=== PATIENT | male | born 1960 | race Caucasian/White ===

== ENCOUNTER → 2016-07-01 | Outpatient (CLI) | payer BC ==
--- NOTE | 2016-07-01 14:29 | CR ---
EXAMINATION: Two-view chest (PA and Lateral views). HISTORY: COPD. FINDINGS: The trachea is midline. The cardiomediastinal silhouette is within normal limits. No pulmonary infil trates, effusions or pneumothorax. There is a chronic interstitial prominence. Old rib fractures are noted. IMPRESSION: No acute cardiopulmonary process.
== END ==
LOC: MW.CHFP 13:25
PROVIDERS: ATTEND Physician Assistant
DX: J44.9 Chronic obstructive pulmonary disease, unspecified (principal); I48.91 Unspecified atrial fibrillation
CPT/HCPCS: 36415; 71020; 71020-26; 85025; 85610

== ENCOUNTER → 2016-07-03 | Outpatient (CLI) | payer BC ==
--- NOTE | 2016-07-12 20:29 | ECHO ---
The echocardiogram report can be seen in this patient's EMR in the Reports section. JORDAN
== END ==
LOC: MW.US 13:00
PROVIDERS: ATTEND Internal Medicine
DX: I50.20 Unspecified systolic (congestive) heart failure (principal)
CPT/HCPCS: 93306

== ENCOUNTER 2017-09-14 14:10 | Emergency (ER) | payer BC, OTHER ==
--- NOTE | 2017-09-14 14:37 | EDM.PDOC ---
ED HPI GENERAL MEDICAL PROBLEM - General Chief Complaint: Eye Problems Stated Complaint: something in his right eye Time Seen by Provider: 09/14/17 14:20 Source of Information: Reports: Patient History Limitations: Reports: No Limitations - History of Present Illness INITIAL COMMENTS - FREE TEXT/NARRATIVE: History of present illness: []2 days ago patient was grinding metal but was wearing contacts and did not feel anything in his eyes of the time but has developed increasing pain and watery drainage in his right eye. His neighbor gave him Cipro ophthalmic drops and he has been using them. Review of systems: As per history of present illness and below otherwise all systems reviewed and negative. Past medical history: As per history of present illness and as reviewed below otherwise noncontributory. Surgical history: As per history of present illness and as reviewed below otherwise noncontributory. Social history: No reported history of drug or alcohol abuse. Family history: As per history of present illness and as reviewed below otherwise noncontributory. Physical exam: General: Well developed, well nourished in NAD HEENT: Atraumatic, normocephalic, pupils reactive, erythematous conjunctiva of the right eye no purulent drainage or obvious foreign body noted, mucous membranes moist, throat clear, neck supple, nontender, trachea midline. Lungs: Clear to auscultation, breath sounds equal bilaterally, chest nontender. Heart: S1S2, regular, negative for clicks, rubs, or JVD. Abdomen: Soft, nondistended, nontender. Negative for masses or hepatosplenomegaly. Negative for costovertebral tenderness. Pelvis: Stable nontender. Genitourinary: Deferred. Rectal: Deferred. Extremities: Atraumatic, negative for cords or calf pain. Neurovascular unremarkable. Neuro: Awake, alert, oriented. Cranial nerves II through XII unremarkable. Cerebellum unremarkable. Motor and sensory unremarkable throughout. Exam nonfocal. Diagnostics: []Proparacaine drops used and fluorescein dye placed in the eye and evaluated with daily light there is a punctate lesion in the right center of his right eye that picks up the dye Therapeutics: []Erythromycin ophthalmic ointment 3 times a day Impression: []Small corneal abrasion right eye Plan: []Follow-up ophthalmology in one to 2 days turn of symptoms worsen or change Definitive disposition and diagnosis as appropriate pending reevaluation and review of above. Right Eye Pain Score (Numeric/FACES): 7 - Related Data Allergies Allergy/AdvReac Type Severity Reaction Status Date / Time No Known Allergies Allergy Verified 09/14/17 14:36 Home Meds: Home Meds PARoxetine HCl [Paxil] 20 mg PO DAILY 01/26/15 [History] Acetaminophen/oxyCODONE [Percocet 325-10 MG] 1 - 2 tab PO Q4H PRN #80 tablet [Rx] Albuterol [IJD: Ventolin HFA] 1 - 2 puff INH Q4HR PRN #1 inhaler 11/17/15 [Rx] Aspirin 325 mg PO DAILY #30 tablet 11/17/15 [Rx] Diltiazem HCl [Diltiazem ER] 240 mg PO DAILY #30 cap.er.deg 11/17/15 [Rx] Fluticasone/Salmeterol [Advair Diskus 250-50] 1 puff INH BID #1 inhaler [Rx] Prednisone [IJD: Prednisone] 10 - 40 mg PO DAILY #30 tab 11/17/15 [Rx] Erythromycin Base [Erythromycin 0.5% Ophth Oint] 1 applic OP Q4H #1 tube [Rx] Past Medical History Cardiovascular History: Reports: Afib Respiratory History: Reports: SOB, Other (See Below) Other Respiratory History: Reports several years of tobacco use, current 1 1/2 ppd Gastrointestinal History: Reports: Other (See Below) Other Gastrointestinal History: Heartburn Musculoskeletal History: Reports: Other (See Below) Other Musculoskeletal History: hx: fracturing fingers, arm, leg Psychiatric History: Reports: Anxiety Endocrine/Metabolic History: Reports: Obesity/BMI 30+ - Infectious Disease History Infectious Disease History: Reports: Chicken Pox - Past Surgical History Musculoskeletal Surgical History: Reports: Other (See Below) Social & Family History - Family History Family Medical History: Noncontributory ED ROS GENERAL - Review of Systems Review Of Systems: See Below (See history of present illness) ED EXAM GENERAL W FULL EYE - Physical Exam Exam: See Below (See history of present illness) Course - Vital Signs Last Recorded V/S: Last Vital Signs Temp 97.2 F 09/14/17 14:34 Pulse 73 09/14/17 14:34 Resp 18 05/13/18 14:34 BP 161/98 H 09/14/17 14:34 Pulse Ox 93 L 09/14/17 14:34 - Orders/Labs/Meds Meds: Medications Discontinued Medications Generic Name Dose Route Start Last Admin Trade Name Beverly PRN Reason Stop Dose Admin Proparacaine HCl 1 ml 09/14/17 14:38 Proparacaine 0.5% Ophth Soln EYEBOTH 09/14/17 14:39 NOW STA Departure - Departure Time of Disposition: 14:52 Disposition: Home, Self-Care 01 Condition: Good Clinical Impression: Right corneal abrasion Qualifiers: Encounter type: initial encounter Qualified Code(s): S05.01XA - Injury of conjunctiva and corneal abrasion without foreign body, right eye, initial encounter - Discharge Information Prescriptions: Erythromycin Base [Erythromycin 0.5% Ophth Oint] 1 applic OP Q4H #1 tube Referrals: Mendoza Canchola MD [Primary Care Provider] - Forms: ED Department Discharge Additional Instructions: The following information is given to patients seen in the emergency department who are being discharged to home. This information is to outline your options for follow-up care. We provide all patients seen in our emergency department with a follow-up referral. The need for follow-up, as well as the timing and circumstances, are variable depending upon the specifics of your emergency department visit. If you don't have a primary care physician on staff, we will provide you with a referral. We always advise you to contact your personal physician following an emergency department visit to inform them of the circumstance of the visit and for follow-up with them and/or the need for any referrals to a consulting specialist. The emergency department will also refer you to a specialist when appropriate. This referral assures that you have the opportunity for follow-up care with a specialist. All of these measure are taken in an effort to provide you with optimal care, which includes your follow-up. Under all circumstances we always encourage you to contact your private physician who remains a resource for coordinating your care. When calling for follow-up care, please make the office aware that this follow-up is from your recent emergency room visit. If for any reason you are refused follow-up, please contact the [facility] Emergency Department at and asked to speak to the emergency department charge nurse. Erythromycin ophthalmic ointment 3 times a day, Motrin for pain follow-up with ophthalmology [facility] [address] [place] [id number]
[2017-09-14 14:38] VITALS: BP 161/98
[2017-09-14] MEDS ORDERED: Proparacaine 0.5% Ophth Soln 15 ML Bottle EYEBOTH STA (14:38)
== END 2017-09-14 15:45 | disposition home or self-care (01) ==
LOC: MW.ED 14:10
DX: S05.01XA Injury of conjunctiva and corneal abrasion without foreign body, right eye, initial encounter (principal); Z79.82 Long term (current) use of aspirin; Z79.899 Other long term (current) drug therapy; W29.8XXA Contact with other powered hand tools and household machinery, initial encounter
CPT/HCPCS: 99283

== ENCOUNTER 2019-08-16 22:06 | Emergency (ER) | payer BC, OTHER ==
--- NOTE | 2019-08-16 22:37 | EDM.PDOC ---
ED HPI GENERAL MEDICAL PROBLEM - General Chief Complaint: General Stated Complaint: EMS ARRIVAL Time Seen by Provider: 08/16/19 22:07 Source of Information: Reports: EMS - History of Present Illness INITIAL COMMENTS - FREE TEXT/NARRATIVE: The patient is a 59-year-old male who presents to the ER via EMS for possible head trauma. They state that it is the to call but she is drunk as well. The history is difficult but apparently the patient was found on the floor in his garage. He is extremely intoxicated and he takes warfarin. Further history is unobtainable as both the patient and the are inebriated as mentioned. - Related Data Allergies Allergy/AdvReac Type Severity Reaction Status Date / Time No Known Allergies Allergy Verified 08/16/19 22:18 Home Meds: Home Meds Furosemide 20 mg PO DAILY 09/14/17 [History] Hydrocodone/Acetaminophen [[place] 10-325 Tablet] 10 - 325 mg PO Q6H PRN 09/14/17 [History] Lisinopril 10 mg PO BEDTIME 09/14/17 [History] Metoprolol Succinate [Toprol XL 100mg] 100 mg PO BID 09/14/17 [History] Spironolactone [Aldactone] 25 mg PO DAILY 09/14/17 [History] Warfarin [Coumadin] 3 mg PO DAILY 09/14/17 [History] Past Medical History HEENT History: Reports: Other (See Below) Other HEENT History: wears contacts (in right now) Cardiovascular History: Reports: Afib, Hypertension Respiratory History: Reports: SOB Other Respiratory History: Reports several years of tobacco use, current 1 1/2 ppd Gastrointestinal History: Reports: GERD Other Gastrointestinal History: Heartburn Musculoskeletal History: Reports: None Other Musculoskeletal History: hx: fracturing fingers, arm, leg Psychiatric History: Reports: Anxiety Endocrine/Metabolic History: Reports: Obesity/BMI 30+ - Infectious Disease History Infectious Disease History: Reports: Chicken Pox, Shingles - Past Surgical History HEENT Surgical History: Reports: None Cardiovascular Surgical History: Reports: None Respiratory Surgical History: Reports: None GI Surgical History: Reports: None Musculoskeletal Surgical History: Reports: Knee Replacement, Other (See Below) Other Musculoskeletal Surgeries/Procedures:: bilateral knee Dermatological Surgical History: Reports: None Social & Family History - Family History Family Medical History: Noncontributory HEENT: Reports: None Immunologic: Reports: None - Tobacco Use Smoking Status *Q: Unknown Ever Smoked - Caffeine Use Caffeine Use: Reports: Coffee - Living Situation & Occupation Living situation: Reports: Occupation: Employed ED ROS GENERAL - Review of Systems Review Of Systems: See Below (Unobtainable secondary to alcohol intoxication) ED EXAM, GENERAL - Physical Exam Exam: See Below Free Text/Narrative:: Constitutional: No acute distress, Non-toxic appearance, smells of alcohol and appears heavily inebriated HEENT.: Normocephalic, Atraumatic, PERRL, EOMI, External ears are atraumatic, no hemotympanum bilaterally, oropharynx clear and moist without lesions or masses, nares are patent without epistaxis Neck: Normal range of motion, Trachea Midline, No stridor Respiratory.: No respiratory distress, No tachypnea, Lungs Clear to Auscultation bilaterally without wheezes, rales, or rhonchi Cardiovascular.: Regular rate and Rhythm without murmurs, rubs, or gallops, good peripheral perfusion GI: Abdomen soft and non tender Genital Urinary: Deferred Musculoskeletal: Good range of motion. All 4 extremities present and atraumatic , no edema Back: Full Range of Motion Skin: Warm, Dry, Color is ethnicity appropriate, No acute rash. Lymphatic: No lymphadenopathy noted Neurological: Nonfocal exam, cranial nerves grossly intact, heavily inebriated Psych: Unable to assess Course - Vital Signs Text/Narrative:: Due to the patient's age, history and the fact that he is supposed to be taking Coumadin I ordered a stat CT scan of the head and cervical spine to rule out any acute intracranial hemorrhage, subarachnoid hemorrhage, subdural hematoma, cervical fractures, etc. As soon as they were done I looked at the CT scans of the head and neck myself. I do not appreciate any intracranial hemorrhage, subarachnoid hemorrhage, subdural hematoma, epidural hematoma, or any acute intracranial process. CT scan of the cervical spine shows some chronic arthritic changes but I do not appreciate any fractures, spondylolisthesis or any acute process. Radiology agreed with my interpretation. The patient slept soundly for several hours and he has not woken up. He is now awake alert and oriented x3 and clinically sober and able to ambulate on his own and go to the bathroom. His family will pick him up. Last Recorded V/S: Last Vital Signs Temp 36.4 C 08/16/19 22:13 Pulse 90 08/17/19 03:00 Resp 20 08/17/19 03:00 BP 143/93 H 08/17/19 03:00 Pulse Ox 98 08/17/19 03:00 Departure - Departure Time of Disposition: 04:57 Disposition: Home, Self-Care 01 Condition: Good Clinical Impression: Alcohol intoxication - Discharge Information Instructions: Alcohol Intoxication, [id number], Alcohol Use Disorder Forms: ED Department Discharge Sepsis Event Note - Evaluation Sepsis Screening Result: No Definite Risk - Focused Exam Vital Signs: Vital Signs Temp Pulse Resp BP Pulse Ox 08/17/19 03:00 90 20 143/93 H 98 08/17/19 02:30 16 177/113 H 98 08/17/19 01:30 108 H 16 156/94 H 95 08/17/19 00:30 111 H 16 166/102 H 93 L 08/16/19 22:13 36.4 C 92 16 121/86 96 Date Exam was Performed: 08/17/19 Time Exam was Performed: 04:56
--- NOTE | 2019-08-16 22:37 | CT ---
INDICATION: fall on thinners. altered mental status. CT HEAD WITHOUT CONTRAST TECHNIQUE: Multiple axial CT images were performed through the head without intravenous contrast administration. COMPARISON: No previous studies are currently available for comparison. FINDINGS: No acute intracranial hemorrhage is identified. No extra-axial collections are evident and there is no mass effect or midline shift. Ventricles are normal in size and configuration. Brain parenchyma appears normal with unremarkable torres-white differentiation. Osseous structures are within normal limits and no fractures are seen. Included portions of the paranasal sinuses show scattered mild mucosal thickening. The mastoid air cells are normally aerated. IMPRESSION: Negative non-contrast head CT. JAYLAN PERDUE MD [facility] Dictated by: Donald Perdue MD @ 08/16/2019 22:35:28 (Electronically Signed)
--- NOTE | 2019-08-16 22:39 | CT ---
INDICATION: fall on thinners. altered mental status. CT CERVICAL SPINE WITHOUT CONTRAST TECHNIQUE: Multidetector axial CT imaging was performed through the cervical spine, without contrast. Sagittal and coronal reconstructions were generated. FINDINGS: No acute fractures are identified. Multilevel degenerative change is noted in the cervical spine, including degenerative disc disease at C5-6 and C6-7, and scattered facet joint degenerative changes. Osseous alignment is within normal limits and no subluxation is seen. Prevertebral soft tissues are unremarkable. Included portions of the airway and lung apices are within normal limits. IMPRESSION: 1. No fracture, subluxation, or other acute finding identified. 2. Cervical spondylosis, as noted above. JAYLAN PERDUE MD [facility] Dictated by: Donald Perdue MD @ 08/16/2019 22:37:47 (Electronically Signed)
[2019-08-16] MEDS ORDERED: Sodium Chloride 0.9% 1,000 ML IV ONE (22:55)
[2019-08-17 05:27] VITALS: BP 136/92; PULSE 89
== END 2019-08-17 05:15 | disposition home or self-care (01) ==
LOC: MW.ED 22:06
DX: F10.129 Alcohol abuse with intoxication, unspecified (principal); I10 Essential (primary) hypertension; I48.91 Unspecified atrial fibrillation; E66.9 Obesity, unspecified; Z79.01 Long term (current) use of anticoagulants; Z79.899 Other long term (current) drug therapy
CPT/HCPCS: 70450; 72125; 96360; 96361; 99284; J7030; 99283

== ENCOUNTER 2022-09-27 09:39 | Emergency (ER) | payer BC ==
[2022-09-27 10:08] LABS: HEMATOCRIT 35.7 % (38.0-50.0); HEMOGLOBIN 12.4 g/dL (13.0-17.0); MEAN CORPUSCULAR HEMOGLOBIN 35.6 pg (27.0-32.0); MEAN CORPUSCULAR HGB CONC 34.7 g/dL (31.0-37.0); MEAN CORPUSCULAR VOLUME 102.6 fL (80.0-98.0); NRBC ABSOLUTE 0 K/uL; NRBC PERCENT 0.6 /100WBC; RED BLOOD CELL COUNT 3.48 M/uL (4.50-5.90); WHITE BLOOD CELL COUNT,WBC 12.73 K/uL (4.0-11.0)
[2022-09-27 10:23] VITALS: BP 82/46; PULSE 120
[2022-09-27 10:23] LABS: INR 1.13 (0.86-1.11)
[2022-09-27 10:30] LABS: PLATELET COUNT,PLT 86 K/uL (150-400)
[2022-09-27] MEDS ORDERED: Norepinephrine Bit/D5W Premix 250 ML ONE ×2 (10:32→13:46)
[2022-09-27 10:38] LABS: BAND ABSOLUTE MAN 1.1; BAND PERCENT MAN 9 %; LYMPHOCYTES ABSOLUTE MAN 0.3 (0.6-2.4); LYMPHOCYTES PERCENT MAN 2 % (16.0-40.0); METAMYELOCYTE ABSOLUTE MAN 0.6; METAMYELOCYTE PERCENT MAN 5 %; MONOCYTES ABSOLUTE MAN 0.4 (0.0-0.8); MONOCYTES PERCENT MAN 3 % (0.0-15.0); SEG NEUTROPHILS ABSOLUTE MAN 10.3 (1.4-5.7); SEG NEUTROPHILS PERCENT MAN 81 % (48.0-80.0)
[2022-09-27 10:47] LABS: A/G RATIO 0.6 (0.9-1.6); ALBUMIN 2.2 g/dL (3.4-5.0); BILIRUBIN TOTAL 2.8 mg/dL (0.2-1.0); CALCIUM 7.7 mg/dL (8.5-10.1); CARBON DIOXIDE,CO2 25.3 mmol/L (21.0-32.0); CREATININE 7.4 mg/dL (0.8-1.3); EST CRCL DRUG DOSING (CG) 11.02 mL/min; POTASSIUM,K 3.1 mmol/L (3.5-5.1); PROTEIN TOTAL,TP 6.2 g/dL (6.4-8.2)
[2022-09-27] MEDS ORDERED: Piperacillin/Tazobactam 4.5 GM in Sodium Chloride 0.9% 100 ML IV ONE (11:03)
[2022-09-27] MEDS ORDERED: Norepinephrine Bit/D5W Premix 250 ML IV SCH ×2 (11:15→13:45)
[2022-09-27] MEDS ORDERED: VANCOmycin 2 GM/400 ML 2 GM in Premix Bag 1 BAG IV ONE (11:30)
== END 2022-09-27 13:02 ==
LOC: MW.ED 09:39
DX: R41.82 Altered mental status, unspecified (principal); I95.9 Hypotension, unspecified; I48.91 Unspecified atrial fibrillation; I11.0 Hypertensive heart disease with heart failure; I50.9 Heart failure, unspecified; J44.9 Chronic obstructive pulmonary disease, unspecified; E66.9 Obesity, unspecified; Z68.32 Body mass index [BMI] 32.0-32.9, adult; Z79.899 Other long term (current) drug therapy
CPT/HCPCS: 36415; 70450; 71045; 80053; 83605; 84484; 85025; 85610; 87040; 87077; 87154; 87186; 93005; 96365; 96366; 96368; 99285; J2543; J3370; J3490; 36556; 93010; 99291; 99292